=== PATIENT | female | born 1950 | race Two or more races ===

== ENCOUNTER 2020-02-04 14:44 | Emergency (ER) | payer MEDICARE, MEDICAID ==
[~2020-02-04] VITALS: Ht 165.1 cm; Wt 59.5 kg
[2020-02-04 15:19] LABS: BASOPHILS # (AUTO) 0.02 x10^3/uL (0-0.1); BASOPHILS % (AUTO) 0 % (0-1); EOSINOPHILS # (AUTO) 0.11 x10^3/uL (0-0.4); EOSINOPHILS % (AUTO) 2 % (1-7); LYMPHOCYTES # (AUTO) 1.41 x10^3/uL (1-3.4); LYMPHOCYTES % (AUTO) 23 % (22-44); MD NO; MEAN CORPUSCULAR HEMOGLOBIN 30.6 pg (27.0-34.8); MEAN CORPUSCULAR HGB CONC 33.1 g/dL (32.4-35.8); MEAN CORPUSCULAR VOLUME 92.5 fL (80-100); MEAN PLATELET VOLUME 8.4 fL (7.4-10.4); MONOCYTES # (AUTO) 0.37 x10^3/uL (0.2-0.8); MONOCYTES % (AUTO) 6 % (2-9); NEUTROPHILS # (AUTO) 4.34 x10^3/uL (1.8-6.8); NEUTROPHILS % (AUTO) 70 % (42-75); PLATELET COUNT 223 x10^3/uL (130-400); RED BLOOD COUNT 4.84 x10^6/uL (3.82-5.3); RED CELL DISTRIBUTION WIDTH 14.4 % (9.6-15.2)
--- NOTE | 2020-02-04 15:53 | NUR ---
LEAD ESTHETICIAN: PT AMBULATORY WITH STEADY GAIT TO ROOM AT THIS TIME. CARLOS
[2020-02-04 15:54] LABS: CHLORIDE 111 mmol/L (98-107)
--- NOTE | 2020-02-04 16:34 | NUR ---
PT BACK FROM CT. PT URINE OBTAINED.
--- NOTE | 2020-02-04 16:35 | NUR ---
7PRESCRIBED MEDS: FLUTICASONE PROPIONATE/SALMETEROL 100/50 MCG. ATROVENT 17 MCG
[2020-02-04 16:36] LABS: ALANINE AMINOTRANSFERASE 37 U/L (12-78); ALKALINE PHOSPHATASE 81 U/L (45-117); ANION GAP 5 mmol/L (5-15); CALCIUM 9.4 mg/dL (8.5-10.1); CREATININE 0.71 mg/dL (0.55-1.02); TROPONIN I 0.015 ng/mL (0.000-0.045)
[2020-02-04] MEDS ORDERED: MECLIZINE CHEWABLE 25 MG TAB ONE (16:56)
[2020-02-04] MEDS: MECLIZINE CHEWABLE 25 MG TAB PO ONE ×2 (16:58→17:00)
[2020-02-04 17:02] LABS: MICROSCOPIC NOT IND
[2020-02-04 17:41] VITALS: BP 133/71
--- NOTE | 2020-02-04 17:42 | NUR ---
PT ASSESSED FOR CHANGES AFTER MEDICATION ADMINISTRATION. NO CHANGES PER PT. PT HAS NO DIZZINESS WITH AMBULATING. PT AMBULATED TO DC DESK WITH STEADY GAIT.
== END 2020-02-04 17:52 | disposition home or self-care (01) ==
LOC: ED 17:30
DX: H81.10 Benign paroxysmal vertigo, unspecified ear (principal); R94.31 Abnormal electrocardiogram [ECG] [EKG]; R51 Headache; M19.90 Unspecified osteoarthritis, unspecified site; E78.00 Pure hypercholesterolemia, unspecified
CPT/HCPCS: 36415; 70450; 80053; 81003; 84484; 85025; 93005; 99285